=== PATIENT | female | born 1950 | race Caucasian/White ===

== ENCOUNTER 2016-04-22 09:37 | Outpatient (CLI) | payer OTHER ==
[~2016-04-22 09:37] MED LIST: ASPIRIN ADULT L81 MG PO; CALCIUM 600 + D PO; FISH OIL1000 M1; GLUCOSAMINE MSM COMP PO; IBUPROFEN200 MG PO; OMEPRAZOLE20 M1 PO; ZOLOFT50 MG PO
--- NOTE | 2016-04-22 11:35 | DIAGNOSTIC IMAGING REPORT ---
PROCEDURE: MG BILATERAL SCREENING W/CAD INDICATION: Screening. Family history breast carcinoma (grandmother, aunt, cousin). TECHNIQUE: Bilateral CC and MLO digital views. COMPARISON: Compared to 02/05/2015, 05/07/2014, and 01/23/2014. FINDINGS: Computer-aided detection applied. Moderately dense with a few dystrophic calcifications. No change. IMPRESSION: 1. Negative mammogram. RESULT CODE: 1- Negative. A. A negative report should not delay biopsy if a dominant or clinically suspicious mass is present. 10-15% of cancers are not identified by x-ray. B. A negative report may reinforce clinical impression. C. Adenosis and dense breasts may obscure an underlying neoplasm. D. False positive reports average 6-10%. E.. A yearly screening mammogram is recommended. A reminder letter will be scheduled.
== END 2016-04-22 23:00 ==
LOC: MAM SRH 09:37
DX: Z12.31 Encounter for screening mammogram for malignant neoplasm of breast (principal); Z80.3 Family history of malignant neoplasm of breast